=== PATIENT | female | born 2000 | race Caucasian/White ===

== ENCOUNTER 2023-03-16 08:00 | Outpatient (CLI) | payer BC | END 2023-03-16 23:59 | disposition home or self-care (01) | LOC: LAB.WC 08:00 | PROVIDERS: ATTEND Obstetrics & Gynecology | DX: Z3A.36 36 weeks gestation of pregnancy (principal) | CPT/HCPCS: 87797 ==

== ENCOUNTER 2023-03-17 15:06 | Outpatient (CLI) | payer BC ==
[2023-03-17 15:27] LABS: HCT - HEMATOCRIT 35.5 % (37.0-47.0); HGB - HEMOGLOBIN 11.5 g/dL (12.0-16.0); MEAN CORPUSCULAR HEMOGLOBIN 28.2 pg (27.0-31.0); MEAN CORPUSCULAR HGB CONC 32.4 g/dL (32.0-36.0); MEAN PLATELET VOLUME 10.3 fL (7.9-10.8); RED BLOOD COUNT 4.08 10^6/uL (4.20-5.40); RED CELL DISTRIBUTION WIDTH 13.1 % (12.0-15.0); WHITE BLOOD COUNT 8.9 x10^3/uL (4.8-10.8)
[2023-03-17 15:33] LABS: ALBUMIN 3.1 g/dL (3.2-5.5); ALBUMIN/GLOBULIN RATIO 0.8 (1.0-2.2); BILIRUBIN,TOTAL 0.2 mg/dL (0.2-1.0); CALCIUM 9.3 mg/dL (8.5-10.3); CREATININE 0.7 mg/dL (0.4-1.0); TOTAL PROTEIN 6.8 g/dL (6.7-8.2)
== END 2023-03-17 15:07 | disposition home or self-care (01) ==
LOC: LAB 15:06
PROVIDERS: ATTEND Obstetrics & Gynecology
DX: O26.613 Liver and biliary tract disorders in pregnancy, third trimester (principal); K83.1 Obstruction of bile duct; O99.013 Anemia complicating pregnancy, third trimester; Z3A.36 36 weeks gestation of pregnancy
CPT/HCPCS: 36415; 80053; 82542; 82728; 85027; 87797

== ENCOUNTER 2023-03-31 14:53 | Outpatient (CLI) | payer BC ==
--- NOTE | 2023-03-31 19:11 | Ultrasound Report ---
PROCEDURE: OB F/U or Repeat INDICATIONS: EXCESSIVE WEIGHT GAIN OUTSIDE/PRIOR DATING DATA: Last menstrual period (LMP): 07/03/2022. LMP-based estimated date of delivery (ALISON): 04/09/2023. First dating scan (date and location): 09/24/2022. Estimated date of delivery (ALISON) from first dating scan: 04/08/2023. The below data below was generated using the sonographic ALISON of 04/08/2023 TECHNIQUE: Real-time scanning was performed of the fetus, with image documentation and biometric measurements. Endovaginal scanning: Not performed. COMPARISON: None. FINDINGS: General: A single living intrauterine gestation is present. Presentation: Breech Placenta: Placental position is posterior, without previa. Amniotic fluid index: 13.7 cm, normal for gestational age. Largest pocket is 4.9 cm heart rate: 140 beats per minute. Maternal cervical canal: Closed and 3.8 cm long; normal length is 2.5 cm or more. biometrics: Biparietal diameter: 9.5 cm, 38 weeks 6 days Head circumference: 35.1 cm, 40 weeks 6 days Abdominal circumference: 34.9 cm 38 weeks 5 days Femur length: 7.1 cm 36 weeks 3 days Estimated gestational age from initial scan: 38 weeks 6 days Composite gestational age from present scan: 38 weeks 5 days Estimated weight and percentile: 3507 g, 59th percentile Measurement variability in biometric dating: +/- 10 days from 12-20 weeks gestation, +/- 2 weeks from 20-30 weeks gestation, +/- 3 weeks at 30 weeks gestation or more. Other: Not applicable. IMPRESSION: 1. Single living intrauterine in breech presentation. 2. Appropriate growth since the prior study. 3. Estimated weight at the 59th percentile. Reviewed by: Dari Patiño MD on 03/31/2023 6:10 PM JAM[facility] Approved by: Dari Patiño MD on 03/31/2023 6:10 PM JAM[facility] Station ID: [id number]
== END 2023-03-31 14:54 | disposition home or self-care (01) ==
LOC: DI 14:53
PROVIDERS: ATTEND Obstetrics & Gynecology
DX: O26.03 Excessive weight gain in pregnancy, third trimester (principal); O32.1XX0 Maternal care for breech presentation, not applicable or unspecified; Z3A.38 38 weeks gestation of pregnancy